=== PATIENT | female | born 1975 | race Caucasian/White ===

== ENCOUNTER 2022-04-02 06:29 | Day surgery (SDC) | payer OTHER ==
[~2022-04-02 06:29] MED LIST: Lactated Ringers 1,000 ML IV SCH; Sodium Chloride 0.9% 10 ML Syringe FLUSH PRN; Sodium Chloride 0.9% 2.5 ML Syringe FLUSH PRN; Sodium Chloride 0.9% 20 ML SDV IV PRN
[2022-04-02] MEDS ORDERED: fentaNYL 100 MCG/2 ML SDV ONE (07:19)
[2022-04-02] MEDS ORDERED: Propofol 200 MG/20 ML SDV ONE (07:19)
[2022-04-02 08:51] VITALS: BP 123/70; PULSE 78
[2022-04-02] MEDS ORDERED: Glycopyrrolate 0.2 MG/ML SDV ONE (08:56)
== END 2022-04-02 09:00 | disposition home or self-care (01) ==
LOC: MW.SDS 06:29
PROVIDERS: ATTEND Surgery
DX: Z12.11 Encounter for screening for malignant neoplasm of colon (principal); K21.9 Gastro-esophageal reflux disease without esophagitis; E66.9 Obesity, unspecified; J32.9 Chronic sinusitis, unspecified; Z68.32 Body mass index [BMI] 32.0-32.9, adult; Z79.899 Other long term (current) drug therapy; Z79.52 Long term (current) use of systemic steroids; Z88.2 Allergy status to sulfonamides; Z98.890 Other specified postprocedural states
CPT/HCPCS: 45378; 81025; J2704; J3010; J3490; J7120; 00812